=== PATIENT | male | born 1970 | race Caucasian/White ===

== ENCOUNTER → 2018-07-27 | Outpatient (REF) ==
[~2018-07-27] MED LIST: LORTAB 5/500 501 TAB PO; NO HOME MEDICATIONS
== END ==
LOC: ZLAB.WCH 14:11
DX: Z01.89 Encounter for other specified special examinations (principal)
CPT/HCPCS: G0103

== ENCOUNTER → 2018-09-06 | Outpatient (CLI) | payer BC | LOC: COL.RAD 07:56 | DX: M25.511 Pain in right shoulder (principal) | CPT/HCPCS: J3301; Q9967 ==

== ENCOUNTER → 2018-12-31 | Outpatient (CLI) | payer BC | LOC: COL.RAD 08:39 | DX: M25.511 Pain in right shoulder (principal) | CPT/HCPCS: J3301; Q9967 ==